=== PATIENT | male | born 1940 | race Caucasian/White ===

== ENCOUNTER 2018-07-22 11:35 | Outpatient (CLI) | payer MEDICARE, BC | END 2018-07-22 23:59 | disposition home or self-care (01) | LOC: WOU 11:35 | PROVIDERS: ATTEND Podiatrist Foot & Ankle Surgery | DX: S81.812A Laceration without foreign body, left lower leg, initial encounter (principal); W17.89XA Other fall from one level to another, initial encounter; Y92.89 Other specified places as the place of occurrence of the external cause; I10 Essential (primary) hypertension; Z96.643 Presence of artificial hip joint, bilateral; Z79.899 Other long term (current) drug therapy | CPT/HCPCS: 11042; A6402; J3490; Z7610 ==

== ENCOUNTER 2018-07-29 11:10 | Outpatient (CLI) | END 2018-07-29 23:59 | disposition home or self-care (01) | DX: S81.812A Laceration without foreign body, left lower leg, initial encounter (principal); W17.89XA Other fall from one level to another, initial encounter; Y92.89 Other specified places as the place of occurrence of the external cause; Z96.643 Presence of artificial hip joint, bilateral; I10 Essential (primary) hypertension; Z83.3 Family history of diabetes mellitus; Z82.3 Family history of stroke; M79.662 Pain in left lower leg ==

== ENCOUNTER 2018-08-05 11:20 | Outpatient (CLI) | payer MEDICARE, BC | END 2018-08-05 23:59 | disposition home or self-care (01) | LOC: WOU 11:20 | PROVIDERS: ATTEND Podiatrist Foot & Ankle Surgery | DX: S81.812A Laceration without foreign body, left lower leg, initial encounter (principal); W10.1XXA Fall (on)(from) sidewalk curb, initial encounter; Y92.89 Other specified places as the place of occurrence of the external cause; Z96.643 Presence of artificial hip joint, bilateral; I10 Essential (primary) hypertension; K21.9 Gastro-esophageal reflux disease without esophagitis; M79.662 Pain in left lower leg | CPT/HCPCS: 11042; A6402 ==

== ENCOUNTER 2018-08-26 11:20 | Outpatient (CLI) | payer MEDICARE, BC | END 2018-08-26 23:59 | disposition home or self-care (01) | LOC: WOU 11:20 | PROVIDERS: ATTEND Podiatrist Foot & Ankle Surgery | DX: S81.812D Laceration without foreign body, left lower leg, subsequent encounter (principal); W01.0XXD Fall on same level from slipping, tripping and stumbling without subsequent striking against object, subsequent encounter; M79.662 Pain in left lower leg | CPT/HCPCS: A6402; G0463 ==

== ENCOUNTER 2022-12-17 16:00 | Emergency (ER) | payer MEDICARE, BC ==
[~2022-12-17] VITALS: Ht 180.3 cm; Wt 83.9 kg
--- NOTE | 2022-12-17 16:16 | NUR ---
BIB FAMILY C/O EPISTAXIS X 2 HRS AFTER COUGHING. PLACED IN BED, AAOX4, UNLABORED BREATHING SATURATING AT 97%RA. PATIENT ON ELIQUIS.
--- NOTE | 2022-12-17 16:30 | NUR ---
AT BEDSIDE FOR EVAL.
[2022-12-17] MEDS ORDERED: OXYMETAZOLINE HCL NASAL SPRAY 30 ML BOTTLE NS ONE ×2 (17:00→17:26)
[2022-12-17 17:25] LABS: BASOPHILS # (AUTO) 0.1 K/uL (0.0-0.2); BASOPHILS % (AUTO) 0.7 % (0.0-2.0); HEMATOCRIT 41 % (39-51); HEMOGLOBIN 13.4 g/dL (13.5-17.5); LYMPHOCYTES # (AUTO) 0.9 K/uL (0.8-4.8); LYMPHOCYTES % (AUTO) 11.9 % (20.0-44.0); MEAN CORPUSCULAR HGB CONC 33 g/dl (31.0-36.0); MEAN CORPUSCULAR VOLUME 86 fL (80-96); MONOCYTES # (AUTO) 0.6 K/uL (0.1-1.30); MONOCYTES % (AUTO) 7.9 % (2.0-12.0); NEUTROPHILS # (AUTO) 5.6 K/uL (1.8-8.9); NEUTROPHILS % (AUTO) 78.5 % (43.0-81.0); PLATELET COUNT (AUTO) 137 K/uL (150-450); RED BLOOD CELL COUNT(AUTO) 4.71 MIL/uL (4.5-6.0); WHITE BLOOD COUNT (AUTO) 7.2 K/uL (4.3-11.0)
[2022-12-17 17:33] LABS: CALCIUM, SERUM 8.9 mg/dL (8.5-10.1); CARBON DIOXIDE 26 mmol/L (21-32); CHLORIDE 105 mmol/L (98-107); CREATININE 1.7 mg/dL (0.6-1.3); GLUCOSE 110 mg/dL (74-106); POTASSIUM 4.6 mmol/L (3.5-5.1); SODIUM SERUM 137 mmol/L (136-145); UREA NITROGEN, BLOOD 38 mg/dL (7-18)
[2022-12-17] MEDS ORDERED: IV NS 0.9% 1,000 ML IV ONE (18:30)
--- NOTE | 2022-12-17 20:07 | NUR ---
Patient discharged to home in stable condition. Written and verbal after care instructions given. Patient verbalizes understanding of instruction.IV removed. Catheter intact and site benign. Pressure and 4x4 applied to site. No bleeding noted.
[2022-12-17 20:35] VITALS: BP 119/64
== END 2022-12-17 20:35 | disposition home or self-care (01) ==
LOC: ER 16:05
DX: R04.0 Epistaxis (principal); I10 Essential (primary) hypertension; I48.91 Unspecified atrial fibrillation; Z98.890 Other specified postprocedural states; Z88.2 Allergy status to sulfonamides
CPT/HCPCS: 99283; 96360; 85025; 80048; 36415; 85730; 86850; A6403; J7030

== ENCOUNTER 2023-01-04 13:17 | Inpatient (IN) | payer MEDICARE, BC ==
[~2023-01-04] VITALS: Ht 180.3 cm; Wt 87.5 kg
[2023-01-04] MEDS ORDERED: IOHEXOL-350 100 ML VIAL IV ONE (13:35)
--- NOTE | 2023-01-04 13:36 | NUR ---
20 inserted rt wrist, bld drawn, sent to lab
[2023-01-04 13:43] LABS: BASOPHILS % (AUTO) 0.4 % (0.0-2.0); EOSINOPHILS % (AUTO) 0.7 % (0.0-6.0); HEMATOCRIT 42 % (39-51); HEMOGLOBIN 13.5 g/dL (13.5-17.5); LYMPHOCYTES # (AUTO) 0.9 K/uL (0.8-4.8); LYMPHOCYTES % (AUTO) 10.6 % (20.0-44.0); MEAN CORPUSCULAR HGB CONC 32 g/dl (31.0-36.0); MEAN CORPUSCULAR VOLUME 87 fL (80-96); MONOCYTES # (AUTO) 0.5 K/uL (0.1-1.30); MONOCYTES % (AUTO) 5.8 % (2.0-12.0); NEUTROPHILS % (AUTO) 82.5 % (43.0-81.0); PLATELET COUNT (AUTO) 183 K/uL (150-450); RED BLOOD CELL COUNT(AUTO) 4.76 MIL/uL (4.5-6.0); WHITE BLOOD COUNT (AUTO) 8.5 K/uL (4.3-11.0)
--- NOTE | 2023-01-04 13:46 | NUR ---
[facility]
--- NOTE | 2023-01-04 13:47 | NUR ---
PT SPEAKING TO NEUROLOGIST VIA TELENEUROSCREEN DEVICE.
[2023-01-04 13:51] LABS: CALCIUM, SERUM 9.3 mg/dL (8.5-10.1); CARBON DIOXIDE 26 mmol/L (21-32); CHLORIDE 107 mmol/L (98-107); CREATININE 1.6 mg/dL (0.6-1.3); GLUCOSE 144 mg/dL (74-106); POTASSIUM 3.7 mmol/L (3.5-5.1); SODIUM SERUM 144 mmol/L (136-145); UREA NITROGEN, BLOOD 26 mg/dL (7-18)
[2023-01-04] MEDS ORDERED: ATORVASTATIN 40 MG TABLET PO STA (13:57)
--- NOTE | 2023-01-04 13:59 | NUR ---
C/O LEFT ARM WEAKNESS. LKW "[id number]".he canot pull up his pants thus he was brought to er
[2023-01-04] MEDS ORDERED: ASPIRIN 81 MG TAB.CHEW PO ONE (14:00)
--- NOTE | 2023-01-04 14:06 | NUR ---
DR GONSALES MADE AWARE OF TROPONIN RESULT 89
[2023-01-04] MEDS ORDERED: ASPIRIN 81 MG TAB.CHEW ONE (14:09)
[2023-01-04] MEDS ORDERED: ATORVASTATIN 40 MG TABLET ONE (14:09)
--- NOTE | 2023-01-04 14:25 | NUR ---
COVID SWAB DONE, SENT TO LAB
--- NOTE | 2023-01-04 14:30 | NUR ---
EMT AT BEDSIDE FOR MRSA SWAB
[2023-01-04] MEDS ORDERED: TORS10TA17 PO (15:04)
[2023-01-04] MEDS ORDERED: DUTA0.5C37 PO (15:04)
[2023-01-04] MEDS ORDERED: ROSU40TA23 PO (15:04)
[2023-01-04] MEDS ORDERED: ASPI-1169 PO (15:04)
[2023-01-04] MEDS ORDERED: VALS80TA2 PO (15:04)
[2023-01-04] MEDS ORDERED: METO25TA4 PO (15:04)
--- NOTE | 2023-01-04 15:13 | NUR ---
PT CLAIMS HE IS PRE DIABETIC, AND NO MEDS.
--- NOTE | 2023-01-04 16:34 | NUR ---
GAVE REPORT TO AMANDA ZAVALA BED [id number]
--- NOTE | 2023-01-04 18:00 | NUR ---
ADVOCACY DIRECTORDIRECTOR TRANSLATIONAL NOTES RECEIVED PATIENT VIA GURNEY FROM ER AT 1800H WITH 2 ER STAFF AND SON. WITH ADMITTING DIAGNOSIS OF ACUTE CVA. PATIENT IS AWAKE, A/O X4, VERBALLY RESPONSIVE; WITH BILATERAL HEARING AIDS. PATIENT DENIES PAIN AT THIS TIME. NOTED WITH IV ACCESS ON R HAND #20G-SALINE LOCKED, INTACT AND FLUSHING WELL. BODY ASSESSMENT DONE. SKIN GENERALLY INTACT. PLACED PATIENT ON TELE MONITORING WITH CURRENT READING OF AFIB-81BPM. VITALS SIGNS WITHIN NORMAL LIMITS. SAFETY MEASURES IN PLACE. BED IN LOW AND LOCKED POSITION. SIDE RAILS UP X2; CALL LIGHT AND TABLE WITHIN EASY REACH. WILL CONTINUE TO MONITOR WITH PLAN OF CARE.
--- NOTE | 2023-01-04 19:30 | NUR ---
[employer] CON[employer]ATION LABORER CLOSING NOTES PATIENT IS IN BED, AWAKE, A/O X4, VERBALLY RESPONSIVE; WITH BILATERAL HEARING AIDS. PATIENT DENIES PAIN AT THIS TIME. NO SIGNS OF ACUTE DISTRESS NOTED. ON ROOM AIR, TOLERATED WELL. NO SOB, BREATHING EVEN AND UNLABORED. NOTED WITH IV ACCESS ON R HAND #20G-SALINE LOCKED, INTACT AND FLUSHING WELL. PATIENT ON TELE MONITORING WITH CURRENT READING OF AFIB-80BPM. VITALS SIGNS WITHIN NORMAL LIMITS. ALL NURSING NEEDS ATTENDED. SWALLOW TEST DONE WITH SON PRESENT ON BEDSIDE. SAFETY MEASURES IMPLEMENTED. BED IN LOW AND LOCKED POSITION. SIDE RAILS UP X2; CALL LIGHT AND TABLE WITHIN EASY REACH. WILL ENDORSE TO MODELING AGENCY MANAGER NURSE FOR CONTINUITY OF CARE.
[2023-01-04 19:37] VITALS: BP 111/71
--- NOTE | 2023-01-04 19:45 | NUR ---
SCULPTURE INSTRUCTOR OPENING NOTES RECEIVED PATIENT IN BED, AWAKE. SON AT BEDSIDE. A/O X4, VERBALLY RESPONSIVE; WITH BILATERAL HEARING AIDS. ON ROOM AIR, BREATHING EVEN AND UNLABORED, NO S/S OF SOB OR DISTRESS NOTED AT THIS TIME. IV ACCESS ON R HAND #20G-SALINE LOCKED, INTACT AND FLUSHING WELL. PATIENT ON TELE MONITORING WITH CURRENT READING OF AFIB CONTROLLED. SAFETY MEASURES IN PLACE WITH BED IN LOWEST LOCKED POSITION. SIDE RAILS UP. CALL LIGHT AND TRAY WITHIN EASY REACH. WILL CONTINUE WITH THE PLAN OF CARE.
[2023-01-04 20:00] VITALS: BP 130/85
[2023-01-04] MEDS ORDERED: ACETAMINOPHEN 325 MG TABLET PO PRN (20:30)
--- NOTE | 2023-01-04 21:05 | NUR ---
RN NOTES- STROKE EDUCATION GIVEN TO PATIENT
[2023-01-04 21:25] LABS: THYROID STIMULATING HORMONE 1.371 uIU/mL (0.358-3.74)
--- NOTE | 2023-01-04 21:34 | NUR ---
RN NOTES- TROPONIN LEVEL 101.9 STEFANY FROM LAB CALLED FOR PATIENT'S TROPONIN LEVEL OF 101.9. INFORMED AMBULANCE PARAMEDIC, NO FURTHER ORDERS. WILL CONTINUE TO MONITOR THE PATIENT.
[2023-01-04] MEDS: BLOOD SUGAR DIAGNOSTIC 1 EACH STRIP IN SCH ×3 (22:00→23:58)
--- NOTE | 2023-01-04 22:10 | NUR ---
RN NOTES- PO MEDICATION GIVEN TO PATIENT. ABLE TO TAKE THE MEDICATION WITH WATER. NO DIFFICULTY SWALLOWING, NO COUGHING, NO DISTRESS NOTED.
[2023-01-04] MEDS: ATORVASTATIN 40 MG TABLET PO SCH (23:18)
[2023-01-05] VITALS: BP 125/70
--- NOTE | 2023-01-05 00:10 | NUR ---
RN NOTES- BS LEVEL 159- SOFT DIET AND ACCUCHECK TAKEN AFTER EATING
--- NOTE | 2023-01-05 03:44 | NUR ---
RN NOTES- TROPONIN LEVEL 99. WILL CONTINUE TO MONITOR THE PATIENT.
[2023-01-05] MEDS: BLOOD SUGAR DIAGNOSTIC 1 EACH STRIP IN SCH ×4 (05:11→23:37)
--- NOTE | 2023-01-05 05:11 | NUR ---
RN NOTES- BS LEVEL 99
[2023-01-05 06:38] LABS: BASOPHILS % (AUTO) 0.3 % (0.0-2.0); EOSINOPHILS % (AUTO) 0.2 % (0.0-6.0); HEMATOCRIT 36 % (39-51); HEMOGLOBIN 12.1 g/dL (13.5-17.5); LYMPHOCYTES # (AUTO) 0.7 K/uL (0.8-4.8); LYMPHOCYTES % (AUTO) 5.8 % (20.0-44.0); MEAN CORPUSCULAR HGB CONC 33 g/dl (31.0-36.0); MEAN CORPUSCULAR VOLUME 86 fL (80-96); MONOCYTES # (AUTO) 0.8 K/uL (0.1-1.30); MONOCYTES % (AUTO) 6.8 % (2.0-12.0); NEUTROPHILS % (AUTO) 86.9 % (43.0-81.0); PLATELET COUNT (AUTO) 166 K/uL (150-450); RED BLOOD CELL COUNT(AUTO) 4.22 MIL/uL (4.5-6.0); WHITE BLOOD COUNT (AUTO) 11.5 K/uL (4.3-11.0)
[2023-01-05 06:48] LABS: CALCIUM, SERUM 9.1 mg/dL (8.5-10.1); CARBON DIOXIDE 25 mmol/L (21-32); CHLORIDE 108 mmol/L (98-107); CREATININE 1.5 mg/dL (0.6-1.3); GLUCOSE 115 mg/dL (74-106); SODIUM SERUM 142 mmol/L (136-145); UREA NITROGEN, BLOOD 21 mg/dL (7-18)
[2023-01-05 07:30] VITALS: BP 97/54
--- NOTE | 2023-01-05 07:30 | NUR ---
UNDERGROUND MINE MACHINERY MECHANIC CLOSING NOTES PATIENT IN BED AWAKE. A/O X 4, VERBALLY RESPONSIVE; WITH BILATERAL HEARING AIDS. ON ROOM AIR, BREATHING EVEN AND UNLABORED, NO S/S OF SOB OR DISTRESS NOTED AT THIS TIME. IV ACCESS ON R HAND #20G-SALINE LOCKED, INTACT AND FLUSHING WELL. PATIENT ON TELE MONITORING WITH CURRENT READING OF AFIB CONTROLLED. ALL NEEDS ATTENDED. NIHSS STROKE SCORE DONE. NURSE SWALLOW EVAL DONE. SAFETY MEASURES MAINTAINED. WILL ENDORSE TO THE NEXT SHIFT.
--- NOTE | 2023-01-05 07:54 | NUR ---
REAL ESTATE ASSESSOR OPENING NOTES PATIENT SLEEPING IN BED, EASILY AROUSED BY VERBAL STIMULI. WITH BILATERAL HEARING AIDS. ON ROOM AIR, BREATHING EVEN AND UNLABORED, NO S/S OF SOB OR DISTRESS NOTED AT THIS TIME. IV ACCESS ON R HAND #20G-SALINE LOCKED, INTACT AND FLUSHING WELL. PATIENT ON TELE MONITORING WITH CURRENT READING OF AFIB CONTROLLED. WILL MONITOR FOR NIHSS STROKE SCORE DONE. SAFETY MEASURES MAINTAINED. WILL CONTINUE TO MONITOR.
[2023-01-05] MEDS: ASPIRIN EC 81 MG TABLET.DR PO SCH (08:26)
[2023-01-05] MEDS: PANTOPRAZOLE 40 MG TABLET.DR PO SCH (08:26)
[2023-01-05 11:30] VITALS: BP 106/67
[2023-01-05] MEDS ORDERED: IV NS 0.9% 250 ML IV ONE (12:05)
[2023-01-05] MEDS ORDERED: IOHEXOL-350 100 ML VIAL IV ONE (12:05)
[2023-01-05 15:30] VITALS: BP 115/59
[2023-01-05] MEDS ORDERED: diphenhydrAMINE HCL 25 MG CAPSULE PO PRN (16:30)
--- NOTE | 2023-01-05 18:55 | NUR ---
MS RN CLOSING NOTES PATIENT AWAKE IN BED, A/OX4. WITH BILATERAL HEARING AIDS. ON ROOM AIR, BREATHING EVEN AND UNLABORED, NO S/S OF SOB OR DISTRESS NOTED AT THIS TIME. IV ACCESS ON R HAND #20G-SALINE LOCKED, INTACT AND FLUSHING WELL. PATIENT ON TELE MONITORING WITH CURRENT READING OF AFIB CONTROLLED HR 90-110. WILL MONITOR FOR NIHSS STROKE SCORE DONE. SAFETY MEASURES MAINTAINED. SAFETY MEASURES IN PLACE: CALL LIGHT WITHIN REACH, SIDE RAILS UP X 3, BED LOCKED IN LOWEST POSITION, HOB ELEVATED, BED ALARM ON. WILL ENDORSED TO NEXT NURSE FOR ORMMEL.
--- NOTE | 2023-01-05 19:30 | NUR ---
SLABBER OPENING NOTES RECEIVED PATIENT AWAKE IN BED. PATIENT IS A/O TIMES 3. NO PAIN NOTED. NO SOB NOTED. NO DISTRESS NOTED. ON ROOM AIR AND TOLERATING WELL. ON TELE MONITOR READING AFIB HEART RATE =102. AMBULATORY AND ABLE TO MAKE NEEDS KNOWN. NEURO CHECKS DONE. PATIENT ABLE TO MOVE ALL EXTREMITIES. NO SLURRED SPEECH NOTED. FACIAL SYMMETRY. NO LIP DROOPING NOTED. NOT ANY FACIAL DROOPING NOTED. NO CHANGE IN ACTIVITY NOTED. PATIENT ABLE TO SWALLOW WATER WITHOUT ANY DIFFICULTY. NO DRIFT ON ANY EXTREMITIES NOTED. IV ACCESS NOTED ON THE RIGHT HAND G # 20 AND SL. ALL NEEDS ATTENDED. BED LOCKED IN THE LOWEST POSITION. CALL LIGHT AND TABLE IN EASY REACH. SIDE RAILS UP TIMES 2. WILL CONTINUE TO MONITOR CLOSELY DURING SHIFT FOR ANY ROMMEL.
[2023-01-05 20:00] VITALS: BP 121/72
[2023-01-05] MEDS: ATORVASTATIN 40 MG TABLET PO SCH (21:23)
[2023-01-06] VITALS: BP 98/68
[2023-01-06 04:00] VITALS: BP 119/83
[2023-01-06] MEDS: BLOOD SUGAR DIAGNOSTIC 1 EACH STRIP IN SCH ×3 (05:40→17:07)
--- NOTE | 2023-01-06 05:45 | NUR ---
RN NOTES BLOOD SUGAR CHECK FOR 0600 RESULTED 104. NO INSULIN COVERAGE.
[2023-01-06 07:00] VITALS: BP 126/74
[2023-01-06 07:03] LABS: BASOPHILS % (AUTO) 0.4 % (0.0-2.0); EOSINOPHILS % (AUTO) 1.1 % (0.0-6.0); HEMATOCRIT 37 % (39-51); HEMOGLOBIN 12.3 g/dL (13.5-17.5); LYMPHOCYTES # (AUTO) 0.9 K/uL (0.8-4.8); LYMPHOCYTES % (AUTO) 8.8 % (20.0-44.0); MEAN CORPUSCULAR HGB CONC 33 g/dl (31.0-36.0); MEAN CORPUSCULAR VOLUME 88 fL (80-96); MONOCYTES # (AUTO) 0.8 K/uL (0.1-1.30); MONOCYTES % (AUTO) 7.9 % (2.0-12.0); NEUTROPHILS # (AUTO) 8.3 K/uL (1.8-8.9); NEUTROPHILS % (AUTO) 81.8 % (43.0-81.0); PLATELET COUNT (AUTO) 157 K/uL (150-450); RED BLOOD CELL COUNT(AUTO) 4.25 MIL/uL (4.5-6.0); WHITE BLOOD COUNT (AUTO) 10.2 K/uL (4.3-11.0)
--- NOTE | 2023-01-06 07:30 | NUR ---
CUTTER GRINDER OPERATOR CLOSING NOTES PATIENT AWAKE IN BED. PATIENT IS A/O TIMES 3. NO PAIN NOTED. NO SOB NOTED. NO DISTRESS NOTED. ON ROOM AIR AND TOLERATING WELL. ON TELE MONITOR READING AFIB HEART RATE =107. AMBULATORY AND ABLE TO MAKE NEEDS KNOWN. NEURO CHECKS DONE. PATIENT ABLE TO MOVE ALL EXTREMITIES. NO SLURRED SPEECH NOTED. FACIAL SYMMETRY. NO LIP DROOPING NOTED. NOT ANY FACIAL DROOPING NOTED. NO CHANGE IN ACTIVITY NOTED. PATIENT ABLE TO SWALLOW WATER WITHOUT ANY DIFFICULTY. NO DRIFT ON ANY EXTREMITIES NOTED. NO VISUAL CHANGES NOTED. NO HEADACHE NOTED. NO DIZZINESS NOTED. IV ACCESS NOTED ON THE RIGHT HAND G # 20 AND SL.AND RIGHT AC # 20 SL INTACT.ALL DUE MEDS GIVEN ORDER. ALL NEEDS ATTENDED. BED LOCKED IN THE LOWEST POSITION. CALL LIGHT AND TABLE IN EASY REACH. SIDE RAILS UP TIMES 2. WILL ENDORSE FOR ROMMEL.
[2023-01-06] MEDS: PANTOPRAZOLE 40 MG TABLET.DR PO SCH (07:40)
--- NOTE | 2023-01-06 07:40 | NUR ---
EMERGENCY DOCTOR OPENING NOTES RECEIVED PATIENT AWAKE IN BED WATCHING TV. PATIENT IS A/OX4. NO PAIN NOTED. NO SOB NOTED. NO DISTRESS NOTED. ON ROOM AIR AND TOLERATING WELL. ON TELE MONITOR READING AFIB HEART RATE 103. AMBULATORY AND ABLE TO MAKE NEEDS KNOWN. NEURO CHECKS DONE. PATIENT ABLE TO MOVE ALL EXTREMITIES. NO SLURRED SPEECH NOTED. FACIAL SYMMETRY. NO LIP DROOPING NOTED. NO ANY FACIAL DROOPING NOTED. NO CHANGE IN ACTIVITY NOTED. PATIENT ABLE TO SWALLOW WATER WITHOUT ANY DIFFICULTY. NO DRIFT ON ANY EXTREMITIES NOTED. IV ACCESS NOTED ON THE RIGHT HAND G # 20 SL. ALL NEEDS ATTENDED. BED LOCKED IN LOWEST POSITION. CALL LIGHT AND TABLE WITHIN REACH. SIDE RAILS UP TIMES 2. WILL CONTINUE TO MONITOR CLOSELY DURING SHIFT.
[2023-01-06] MEDS: ASPIRIN EC 81 MG TABLET.DR PO SCH (08:36)
[2023-01-06 11:27] VITALS: BP 108/76
[2023-01-06] MEDS ORDERED: APIXABAN 2.5 MG TABLET PO SCH (15:00)
[2023-01-06 16:10] VITALS: BP 116/71
[2023-01-06] MEDS: APIXABAN 2.5 MG TABLET PO SCH (16:44)
--- NOTE | 2023-01-06 18:35 | NUR ---
RN CLOSING NOTE PATIENT AWAKE IN BED WATCHING TV. PATIENT IS A/OX4. NO PAIN NOTED. NO SOB NOTED. NO DISTRESS NOTED. ON ROOM AIR AND TOLERATING WELL. AMBULATORY AND ABLE TO MAKE NEEDS KNOWN. NEURO CHECKS DONE. PATIENT ABLE TO MOVE ALL EXTREMITIES. NO SLURRED SPEECH NOTED. FACIAL SYMMETRY. NO LIP DROOPING NOTED. NOT ANY FACIAL DROOPING NOTED. NO CHANGE IN ACTIVITY NOTED. PATIENT ABLE TO SWALLOW WATER WITHOUT ANY DIFFICULTY. NO DRIFT ON ANY EXTREMITIES NOTED. NO VISUAL CHANGES NOTED. NO HEADACHE NOTED. NO DIZZINESS NOTED. IV ACCESS NOTED ON THE RIGHT HAND G # 20 SL INTACT AND PATENT. ALL DUE MEDS GIVEN ORDERED. ALL NEEDS ATTENDED. BED LOCKED IN THE LOWEST POSITION. CALL LIGHT AND TABLE WITHIN REACH. SIDE RAILS UP TIMES 2. WILL ENDORSE TO THE DISTRIBUTOR SALES MANAGER NURSE FOR ROMMEL.
--- NOTE | 2023-01-06 19:15 | NUR ---
MS RN OPENING NOTES PT IS RESTING IN BED WATCHING TV. HE IS ALERT AND ORIENTED, A/O X 4. HE IS ON RA, TOLERATED WELL. NO S/S OF DISTRESS OR SOB. PT DENIES OF HAVING PAIN AT THIS MOMENT. PT HAVE TWO IV ACCESS: ONE IS AT HIS R AC, #18, SL; AND ANOTHER ONE IS AT HIS R HAND, #20G; SL. BOTH IV ACCESS ARE FLUSHED WELL WITH 10 CC OF NS. IV SITES ARE PATENT AND INTACT. SAFETY MEASURES ARE IN PLACED: BED IN LOWEST AND LOCKED POSITION; SIDE RAILS UP X 3; CALL LIGHT AND TABLE ARE WITHIN REACH. WILL CONTINUE MONITORING THE PT AND PROVIDE THE CARE PT NEEDS.
[2023-01-06 20:00] VITALS: BP_SYST 139; BP_DIAS 102; BP_DIAS 94
[2023-01-06] MEDS: DUTASTERIDE (0.5 MG) 0.5 MG CAPSULE PO SCH (22:16)
[2023-01-06] MEDS: ATORVASTATIN 40 MG TABLET PO SCH (22:16)
[2023-01-07] MEDS: BLOOD SUGAR DIAGNOSTIC 1 EACH STRIP IN SCH ×4 (05:37→17:11)
[2023-01-07 06:34] LABS: CALCIUM, SERUM 9.1 mg/dL (8.5-10.1); CARBON DIOXIDE 24 mmol/L (21-32); CHLORIDE 106 mmol/L (98-107); CREATININE 1.6 mg/dL (0.6-1.3); GLUCOSE 116 mg/dL (74-106); POTASSIUM 4.4 mmol/L (3.5-5.1); SODIUM SERUM 139 mmol/L (136-145); UREA NITROGEN, BLOOD 19 mg/dL (7-18)
--- NOTE | 2023-01-07 06:46 | NUR ---
MS RN CLOSING NOTES PT IS SLEEPING IN BED; EASILY BEING AROUSED. HE IS ALERT AND ORIENTED, A/O X 4. HE IS ON RA, TOLERATED WELL. NO S/S OF DISTRESS OR SOB. PT DENIES OF HAVING PAIN AT THIS MOMENT. PT HAVE TWO IV ACCESS: ONE IS AT HIS R AC, #18, SL; AND ANOTHER ONE IS AT HIS R HAND, #20G; SL. BOTH IV ACCESS ARE FLUSHED WELL WITH 10 CC OF NS. IV SITES ARE PATENT AND INTACT. SAFETY MEASURES ARE IN PLACED: BED IN LOWEST AND LOCKED POSITION; SIDE RAILS UP X 3; CALL LIGHT AND TABLE ARE WITHIN REACH. WILL ENDORSE NEXT SHIFT NURSE FOR CONTINUING PT CARE.
[2023-01-07 07:30] VITALS: BP 116/84
--- NOTE | 2023-01-07 07:31 | NUR ---
MS RN OPENING NOTES RECEIVED PATIENT AWAKE IN BED. HE IS A/O X 4. HE IS ON RA, TOLERATED WELL. NO S/S OF DISTRESS OR SOB. PT DENIES OF HAVING PAIN AT THIS MOMENT. PT HAVE TWO IV ACCESS: ONE IS AT HIS RAC G#18, SL AND RIGHT HAND G#20 SL. BOTH IV ACCESS ARE PATENT, INTACT AND FLUSHED WELL WITH 10 CC OF NS. SAFETY MEASURES ARE IN PLACED: BED IN LOWEST AND LOCKED POSITION; SIDE RAILS UP X 3; CALL LIGHT AND TABLE WITHIN REACH. WILL CONTINUE TO MONITOR PATIENT.
[2023-01-07] MEDS: PANTOPRAZOLE 40 MG TABLET.DR PO SCH (07:48)
[2023-01-07] MEDS: DUTASTERIDE (0.5 MG) 0.5 MG CAPSULE PO SCH (08:24)
[2023-01-07] MEDS: APIXABAN 2.5 MG TABLET PO SCH ×2 (08:25→16:27)
[2023-01-07] MEDS ORDERED: VALSARTAN 80 MG TABLET PO PRN (10:00)
[2023-01-07] MEDS ORDERED: IV 1/2NS 1000 ML 1,000 ML IV PRN (12:00)
[2023-01-07] MEDS ORDERED: APIX2.5T PO (14:38)
[2023-01-07] MEDS ORDERED: METOPROLOL SUCCINATE 50 MG TAB.SR.24H PO SCH ×2 (15:00)
[2023-01-07 15:30] VITALS: BP 119/72
[2023-01-07 16:26] VITALS: BP 119/72
--- NOTE | 2023-01-07 17:12 | NUR ---
RN NOTES PATIENT REFUSED TO GET HIS BLOOD SUGAR CHECK. WILL CONTINUE TO MONITOR PATIENT.
--- NOTE | 2023-01-07 17:30 | NUR ---
RN NOTES TOOK PATIENT MEDICATION (DUTASTERIDE) FROM THE PHARMACY. GAVE IT ALREADY TO THE PATIENT.
[2023-01-07] MEDS ORDERED: ATORVASTATIN 40 MG TABLET PO SCH (18:00)
[2023-01-07] MEDS ORDERED: DUTASTERIDE (0.5 MG) 0.5 MG CAPSULE PO SCH (18:00)
--- NOTE | 2023-01-07 19:06 | NUR ---
DISCHARGE NOTE PATIENT DISCHARGED HOME IN STABLE CONDITION. A/O X4, ABLE TO MAKE NEEDS KNOWN. PATIENT IS BREATHING EVENLY AND UNLABORED ON ROOM AIR, NO SIGNS OF DISTRESS NOTED. NO SKIN ISSUES. GIVEN DISCHARGE INSTRUCTIONS BOTH VERBALLY AND IN WRITTEN FORM, PATIENT VERBALIZED UNDERSTANDING. PATIENT BELONGINGS ACCOUNTED FOR, BELONGING SHEET SIGNED BY THE PATIENT. PT'S IV ACCESSES ON RAC G#18 SL AND AT RIGHT HAND 20G SL REMOVED, DRY DRESSING APPLIED AT SITES, NO SIGNS OF BLEEDING NOTED. HOME MEDICATION DUTASTERIDE GIVEN TO PATIENT. REMOVED NAME ARM BAND. PATIENT LEFT UNIT AT 1905 ACCOMPANIED BY ME AND PT'S SON, MARIA CEzra RIVERA AND CHARGE NURSE AWARE ON D/C.
[2023-01-08] MEDS ORDERED: METOPROLOL SUCCINATE 25 MG TAB.SR.24H PO SCH (09:00)
[2023-01-08] MEDS ORDERED: TORSEMIDE 5 MG TABLET PO SCH (09:00)
[2023-01-08] MEDS ORDERED: METOPROLOL SUCCINATE 50 MG TAB.SR.24H PO SCH (09:00)
[2023-01-08] MEDS ORDERED: TORSEMIDE 20 MG TABLET PO SCH (09:00)
== END 2023-01-07 19:30 | disposition home or self-care (01) | DRG 69 ==
LOC: ER 13:27 → TELE 16:04 → MED 01-06 10:37
PROVIDERS: ADMIT Nurse Practitioner Acute Care; ATTEND Internal Medicine
DX: G45.9 Transient cerebral ischemic attack, unspecified (principal); I21.A1 Myocardial infarction type 2; N17.0 Acute kidney failure with tubular necrosis; D68.59 Other primary thrombophilia; I25.10 Atherosclerotic heart disease of native coronary artery without angina pectoris; R27.0 Ataxia, unspecified; Z20.822 Contact with and (suspected) exposure to COVID-19; Z86.73 Personal history of transient ischemic attack (TIA), and cerebral infarction without residual deficits; Z96.643 Presence of artificial hip joint, bilateral; Z98.890 Other specified postprocedural states; Z88.2 Allergy status to sulfonamides; I48.91 Unspecified atrial fibrillation; G56.01 Carpal tunnel syndrome, right upper limb; Z79.82 Long term (current) use of aspirin; Z79.899 Other long term (current) drug therapy; R29.700 NIHSS score 0; I11.9 Hypertensive heart disease without heart failure; Z87.09 Personal history of other diseases of the respiratory system
CPT/HCPCS: 36415; 70450-TC; 70496-TC; 70498-TC; 70551-TC; 71045-TC; 80048-TC; 80061-TC; 82962-TC; 84443-TC; 84484-TC; 85025-TC; 85730-TC; 87081-TC; 92526; 92611-TC; 93307-TC; 93880-TC; 97112-TC; 97116-TC; 97530-TC; A4223; C9803; G0378; J3490; J7050; Q9967